=== PATIENT | male | born 1955 | race Caucasian/White ===

== ENCOUNTER → 2024-01-13 07:12 | Outpatient (REF) | payer MEDICARE, OTHER, SELFPAY ==
[2024-01-13 08:09] LABS: % Basophils 0.6 % (0-2); % Immature Granulocytes 0.3 % (0-0.5); % Lymphocytes 19.7 % (20.5-51.1); % Monocytes 8.5 % (1.7-9.3); % Neutrophils 68.9 % (42.2-75.2); Absolute Eosinophils 0.1 10^3/uL (0-0.7); Absolute Lymphocytes 1.3 10^3/uL (1.2-3.4); Absolute Monocytes 0.6 10^3/uL (0.1-0.6); Absolute Neutrophils 4.4 10^3/uL (1.4-6.5); Hematocrit 44.6 % (39.0-52.0); Hemoglobin 14.7 g/dL (13.0-18.0); Mean Corpuscular Hgb 30.6 pg (27.0-31.0); Mean Corpuscular Volume 92.9 fL (80.0-94.0); Mean Platelet Volume 9.8 fL (7.4-10.4); Nucleated Red Blood Cells % 0 % (-); Platelet Count 239 10^3/uL (130-400); Red Cell Dist. Width 13.3 % (11.5-14.5); White Blood Cell Count 6.5 10^3/uL (4.8-10.8)
[2024-01-13 08:16] LABS: INR 0.96; PT 13.1 Sec (11.4-14.6)
[2024-01-13 08:17] LABS: APTT 29.3 Sec (23.4-35.0)
[2024-01-13 08:35] LABS: Blood Urea Nitrogen 23 mg/dl (9-20); Calcium 9.6 mg/dl (8.4-10.2); Carbon Dioxide 30 mmol/L (22-30); Chloride 100 mmol/L (98-107); Glucose 119 mg/dl (70-99); Potassium 4.3 mmol/L (3.5-5.1); Sodium 141 mmol/L (135-145); eGFR > 60.00
[2024-01-13 08:56] LABS: Glycohemoglobin (HgbA1c) 5.6 % (4.0-5.6)
== END ==
LOC: REG 07:12
PROVIDERS: ATTENDING PHYSICIAN Orthopaedic Surgery Sports Medicine; FAMILY PHYSICIAN Nurse Practitioner Family
DX: M17.12 Unilateral primary osteoarthritis, left knee (principal); Z01.818 Encounter for other preprocedural examination; R79.1 Abnormal coagulation profile; R73.09 Other abnormal glucose
CPT/HCPCS: 36415; 80048; 83036; 85025; 85610; 85730; 93005

== ENCOUNTER 2024-09-13 06:16 | Day surgery (SDC) | payer MEDICARE, OTHER, SELFPAY | END 2024-09-13 12:41 | disposition home or self-care (01) | LOC: GI 06:16 | PROVIDERS: ATTENDING PHYSICIAN Internal Medicine Gastroenterology | DX: Z12.11 Encounter for screening for malignant neoplasm of colon (principal); K55.20 Angiodysplasia of colon without hemorrhage; K64.8 Other hemorrhoids | CPT/HCPCS: G0105 ==

== ENCOUNTER → 2024-12-27 06:21 | Outpatient (REF) | payer MEDICARE, OTHER, SELFPAY | LOC: RAD 06:21 | PROVIDERS: ATTENDING PHYSICIAN Nurse Practitioner Family | DX: I65.29 Occlusion and stenosis of unspecified carotid artery (principal); I65.03 Occlusion and stenosis of bilateral vertebral arteries | CPT/HCPCS: 93880 ==